=== PATIENT | female | born 1950 | race Caucasian/White ===

== ENCOUNTER 2018-10-07 12:32 | Emergency (ER) | payer MEDICARE, OTHER ==
[~2018-10-07] VITALS: Ht 152.4 cm; Wt 68.5 kg
[~2018-10-07 12:32] MED LIST: AMBIEN 5 MG TABL5 M1 PO; ATORVASTATIN CA40 MG PO; CYCLOBENZAPRINE5 MG PO; LISINOPRIL20 MG PO; MEDROLDOSEPACK PO; NAPROSYN500 MG PO; NORCO 5-325 TA1 EACH PO
[2018-10-07 13:16] LABS: ABSOLUTE BASOPHILS 0.1 thou/uL (0.0-0.2); ABSOLUTE EOSINOPHILS 0.2 thou/uL (0.0-0.7); ABSOLUTE LYMPHOCYTES 2.1 thou/uL (0.8-5.3); ABSOLUTE MONOCYTES 0.5 thou/uL (0.0-1.2); ABSOLUTE NEUTROPHILS 4.8 thou/uL (1.6-8.1); BASOPHILS 0.9 %; EOSINOPHILS 2.7 %; HEMATOCRIT 40.3 % (37.0-47.0); HEMOGLOBIN 13.5 gm/dL (12.0-15.0); LYMPHOCYTES 27.4 %; MCH 31.4 pg (26.0-34.0); MCHC 33.5 g/dL (28.0-37.0); MCV 93.7 fL (80.0-100.0); MONOCYTES 6.6 %; MPV 8.7 fl. (7.2-11.1); NUCLEATED RBCS 0 /100WBC; PLATELET COUNT* 271 thou/uL (150-400); POLYS 62.4 %; RDW-CV 13.6 % (10.5-14.5); WBC 7.8 thou/uL (4.0-11.0)
[2018-10-07] MEDS ORDERED: CRESTOR40 MG PO (13:21)
[2018-10-07] MEDS ORDERED: VITAMIN D34000 UNIT PO (13:22)
[2018-10-07] MEDS ORDERED: FISH OIL 1,001000 M2 PO (13:22)
[2018-10-07] MEDS ORDERED: POTASSIUM20 PO (13:22)
[2018-10-07] MEDS ORDERED: ZANTAC 150MG T150 MG PO (13:22)
[2018-10-07] MEDS ORDERED: ASPIR 8181 MG PO (13:22)
[2018-10-07 13:23] LABS: ANION GAP 7 mmol/L (7-16); BUN 14 mg/dL (7-18); CALCIUM 9.5 mg/dL (8.5-10.1); CHLORIDE 103 mmol/L (98-107); CO2 26 mmol/L (21-32); CREATININE 0.8 mg/dL (0.6-1.3); GLUCOSE 95 mg/dL (70-99); POTASSIUM 3.8 mmol/L (3.5-5.1); SODIUM 136 mmol/L (136-145)
[2018-10-07 13:30] LABS: ALBUMIN 3.8 g/dL (3.4-5.0); ALKALINE PHOSPHATASE 85 U/L (46-116); SGOT 24 U/L (15-37); SGPT 28 U/L (30-65); TOTAL BILIRUBIN 0.4 mg/dL (<0.1-1.0); TOTAL PROTEIN 7.4 g/dL (6.4-8.2); TROPONIN-I LEVEL <0.06 ng/mL (<0.06)
[2018-10-07] MEDS ORDERED: TORADOL 10 MG T10 MG PO (14:38)
[2018-10-07 15:05] VITALS: BP 121/99
--- NOTE | 2018-10-07 17:50 | EKG ---
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: DIA : 1950 Requested By: Nayely Dove Order Number: [id number] Reading MD: Wang Zambrano Measurements Intervals [place] Rate: 64 P: 26 [place]: 173 QRS: -38 QRSD: 92 T: 41 QT: 389 QTc: 402 Interpretive Statements Sinus rhythm Left axis deviation Abnormal R-wave progression, late transition No previous ECG available for comparison Electronically Signed On 10-07-2018 17:50:34 LOGGING SPECIALIST by Wang Zambrano [email or web address] <ELECTRONICALLY SIGNED> By: Wang Zambrano MD, [facility] 10/07/18 1750 1251 1251 Wang Zambrano MD, FAC /EPI
--- NOTE | 2018-10-07 17:50 | EKG ---
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 : 1950 Requested By: Vivian Alegre Order Number: [id number] MD: Wang Zambrano Measurements Intervals [place] Rate: 72 P: 14 CT: 164 QRS: -38 QRSD: 143 T: 39 QT: 427 QTc: 468 Interpretive Statements Sinus rhythm Right bundle branch block Left ventricular hypertrophy Lateral infarct, age indeterminate No previous ECG available for comparison Electronically Signed On 10-07-2018 17:50:29 SPEECH THERAPIST TECHNICIAN by Wang Zambrano [email or web address] <ELECTRONICALLY SIGNED> By: Wang Zambrano MD, [facility] 10/07/18 1750 1241 1241 Wang Zambrano MD, FACC /EPI
== END 2018-10-07 15:06 | disposition home or self-care (01) ==
LOC: M.ERS 12:32
PROVIDERS: Personal Emergency Response Attendant
DX: R09.1 Pleurisy (principal); I10 Essential (primary) hypertension; Z85.3 Personal history of malignant neoplasm of breast; Z90.13 Acquired absence of bilateral breasts and nipples; Z88.8 Allergy status to other drugs, medicaments and biological substances

== ENCOUNTER 2018-10-23 22:14 | Emergency (ER) | payer MEDICARE, OTHER ==
[~2018-10-23] VITALS: Ht 152.4 cm; Wt 66.2 kg
[~2018-10-23 22:14] MED LIST changes: +ASPIR 8181 MG PO; +CRESTOR40 MG PO; +FISH OIL 1,001000 M2 PO; +POTASSIUM20 PO; +TORADOL 10 MG T10 MG PO; +VITAMIN D34000 UNIT PO; +ZANTAC 150MG T150 MG PO
[2018-10-23 22:41] LABS: ABSOLUTE BASOPHILS 0.1 thou/uL (0.0-0.2); ABSOLUTE EOSINOPHILS 0.2 thou/uL (0.0-0.7); ABSOLUTE LYMPHOCYTES 2.6 thou/uL (0.8-5.3); ABSOLUTE MONOCYTES 0.5 thou/uL (0.0-1.2); ABSOLUTE NEUTROPHILS 4.6 thou/uL (1.6-8.1); BASOPHILS 0.7 %; EOSINOPHILS 2.7 %; HEMATOCRIT 36.7 % (37.0-47.0); HEMOGLOBIN 12.4 gm/dL (12.0-15.0); LYMPHOCYTES 32.8 %; MCH 31.1 pg (26.0-34.0); MCHC 33.7 g/dL (28.0-37.0); MCV 92.4 fL (80.0-100.0); MONOCYTES 6.2 %; MPV 8.5 fl. (7.2-11.1); NUCLEATED RBCS 0 /100WBC; PLATELET COUNT* 247 thou/uL (150-400); POLYS 57.6 %; RBC 3.97 mil/uL (4.20-5.00); RDW-CV 13.4 % (10.5-14.5); WBC 8.1 thou/uL (4.0-11.0)
[2018-10-23 22:45] LABS: CALCIUM 9.3 mg/dL (8.5-10.1); CREATININE 0.8 mg/dL (0.6-1.3); POTASSIUM 3.5 mmol/L (3.5-5.1)
[2018-10-23 22:49] LABS: ALBUMIN 3.7 g/dL (3.4-5.0); TOTAL BILIRUBIN 0.3 mg/dL (<0.1-1.0)
[2018-10-24 01:52] VITALS: BP 145/85
== END 2018-10-24 01:52 | disposition home or self-care (01) ==
LOC: M.ERS 22:14
PROVIDERS: Personal Emergency Response Attendant
DX: K59.00 Constipation, unspecified (principal); I10 Essential (primary) hypertension; Z88.6 Allergy status to analgesic agent; Z85.3 Personal history of malignant neoplasm of breast

== ENCOUNTER 2019-05-17 16:23 | Emergency (ER) | payer MEDICARE, OTHER ==
[~2019-05-17] VITALS: Ht 152.4 cm; Wt 66.7 kg
[2019-05-17] MEDS ORDERED: TYLENOL325 MG PO (16:33)
[2019-05-17] MEDS ORDERED: TRAMADOL 50 MG50 MG PO (16:33)
[2019-05-17] MEDS ORDERED: GABAPENTIN 100100 MG PO (16:34)
[2019-05-17] MEDS ORDERED: MEDROLDOSEPACK PO (16:57)
[2019-05-17] MEDS ORDERED: NORCO 5-325 TA1 EAC1 PO (16:57)
[2019-05-17] MEDS ORDERED: NABUMETONE 750750 M1 PO (16:57)
[2019-05-17 17:23] VITALS: BP 148/66
== END 2019-05-17 17:24 | disposition home or self-care (01) ==
LOC: M.ERS 16:23
DX: M54.42 Lumbago with sciatica, left side (principal); G89.29 Other chronic pain; I10 Essential (primary) hypertension; Z85.3 Personal history of malignant neoplasm of breast; Z90.13 Acquired absence of bilateral breasts and nipples

== ENCOUNTER 2019-08-06 13:36 | Emergency (ER) | payer MEDICARE, OTHER ==
[~2019-08-06] VITALS: Ht 152.4 cm; Wt 65.3 kg
[~2019-08-06 13:36] MED LIST changes: +GABAPENTIN 100100 MG PO; +NABUMETONE 750750 M1 PO; +NORCO 5-325 TA1 EAC1 PO; +TRAMADOL 50 MG50 MG PO; +TYLENOL325 MG PO
[2019-08-06 14:08] LABS: HEMATOCRIT 39.6 % (37.0-47.0); HEMOGLOBIN 13.5 gm/dL (12.0-15.0); MCHC 34.1 g/dL (28.0-37.0); MCV 90.9 fL (80.0-100.0); MPV 7.9 fl. (7.2-11.1); RBC 4.36 mil/uL (4.20-5.00); RDW-CV 14.4 % (10.5-14.5)
[2019-08-06 14:14] LABS: ANION GAP 9 mmol/L (7-16); BUN 12 mg/dL (7-18); CALCIUM 9.6 mg/dL (8.5-10.1); CHLORIDE 105 mmol/L (98-107); CO2 24 mmol/L (21-32); CREATININE 0.9 mg/dL (0.6-1.3); GLUCOSE 99 mg/dL (70-99); SODIUM 138 mmol/L (136-145)
[2019-08-06 14:23] LABS: TROPONIN-I LEVEL <0.06 ng/mL (<0.06)
[2019-08-06] MEDS ORDERED: ZPAK PO (15:07)
[2019-08-06] MEDS ORDERED: PREDNISONE50 MG PO (15:07)
[2019-08-06 15:10] VITALS: BP 127/68
--- NOTE | 2019-08-07 10:43 | EKG ---
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 : 1950 Requested By: Robbi Kerr Order Number: [id number] MD: Wang Zambrano Measurements Intervals [place] Rate: 86 P: 22 [place]: 161 QRS: -41 QRSD: 138 T: 75 QT: 385 QTc: 461 Interpretive Statements Sinus rhythm Right bundle branch block LVH with secondary repol abnrm Compared to ECG 10/07/2018 12:51:45 Right bundle-branch block now present Left ventricular hypertrophy now present Early repolarization now present Electronically Signed On 08-07-2019 10:43:10 CDT by Wang Zambrano [email or web address] <ELECTRONICALLY SIGNED> By: Wang Zambrano MD, [facility] 08/07/19 1043 1347 1347 Wang Zambrano MD, [facility] /EPI
== END 2019-08-06 15:10 | disposition home or self-care (01) ==
LOC: M.ERS 13:36
PROVIDERS: Emergency Medicine Emergency Medical Services
DX: J02.9 Acute pharyngitis, unspecified (principal); I10 Essential (primary) hypertension; Z85.3 Personal history of malignant neoplasm of breast

== ENCOUNTER → 2019-09-06 | Outpatient (CLI) | payer MEDICARE, OTHER ==
[~2019-09-06] MED LIST changes: +PREDNISONE50 MG PO; +ZPAK PO
== END ==
LOC: M.CT 11:57
DX: R91.1 Solitary pulmonary nodule (principal)

== ENCOUNTER 2020-02-04 12:19 | Emergency (ER) | payer MEDICARE, OTHER ==
[~2020-02-04] VITALS: Ht 152.4 cm; Wt 65.8 kg
[2020-02-04] MEDS ORDERED: KEFLEX500 M2 PO (12:31)
[2020-02-04 14:08] LABS: ABSOLUTE BASOPHILS 0.1 thou/uL (0.0-0.2); ABSOLUTE EOSINOPHILS 0.2 thou/uL (0.0-0.7); ABSOLUTE LYMPHOCYTES 1.4 thou/uL (0.8-5.3); ABSOLUTE MONOCYTES 0.5 thou/uL (0.0-1.2); ABSOLUTE NEUTROPHILS 6.2 thou/uL (1.6-8.1); BASOPHILS 0.7 %; EOSINOPHILS 2.9 %; HEMATOCRIT 37.6 % (37.0-47.0); HEMOGLOBIN 12.9 gm/dL (12.0-15.0); LYMPHOCYTES 17.1 %; MCH 30.8 pg (26.0-34.0); MCHC 34.4 g/dL (28.0-37.0); MCV 89.6 fL (80.0-100.0); MONOCYTES 6.2 %; MPV 7.7 fl. (7.2-11.1); NUCLEATED RBCS 0 /100WBC; PLATELET COUNT* 271 thou/uL (150-400); POLYS 73.1 %; RBC 4.19 mil/uL (4.20-5.00); WBC 8.4 thou/uL (4.0-11.0)
[2020-02-04 14:13] LABS: CALCIUM 9.9 mg/dL (8.5-10.1); CREATININE 0.8 mg/dL (0.6-1.3); POTASSIUM 3.9 mmol/L (3.5-5.1)
[2020-02-04 14:24] LABS: ALBUMIN 3.7 g/dL (3.4-5.0); TOTAL BILIRUBIN 0.3 mg/dL (<0.1-1.0); TOTAL PROTEIN 7.6 g/dL (6.4-8.2)
[2020-02-04] MEDS ORDERED: MEDROLDOSEPACK PO (14:30)
[2020-02-04] MEDS ORDERED: VENTOLIN HFA 1818 GM INH (14:30)
[2020-02-04] MEDS ORDERED: LEVAQUIN 500 M500 M3 PO (14:30)
[2020-02-04 14:39] VITALS: BP 132/70
== END 2020-02-04 14:40 | disposition home or self-care (01) ==
LOC: M.ERS 12:19
PROVIDERS: Personal Emergency Response Attendant
DX: J40 Bronchitis, not specified as acute or chronic (principal); I10 Essential (primary) hypertension; Z85.3 Personal history of malignant neoplasm of breast; Z90.13 Acquired absence of bilateral breasts and nipples

== ENCOUNTER → 2020-10-17 | Outpatient (CLI) | payer MEDICARE, OTHER ==
[~2020-10-17] MED LIST changes: +KEFLEX500 M2 PO; +LEVAQUIN 500 M500 M3 PO; +VENTOLIN HFA 1818 GM INH
== END ==
LOC: M.ULTRA 10:34
PROVIDERS: ATTEND Family Medicine
DX: R22.1 Localized swelling, mass and lump, neck (principal)

== ENCOUNTER 2021-10-14 06:41 | Emergency (ER) | payer MEDICARE ==
[~2021-10-14] VITALS: Ht 152.4 cm; Wt 62.6 kg
[2021-10-14] MEDS ORDERED: HYDROCODON-ACE1 EAC7 PO (07:37)
[2021-10-14 07:42] VITALS: BP 174/81
== END 2021-10-14 07:43 | disposition home or self-care (01) ==
LOC: M.ERS 06:41
DX: M79.672 Pain in left foot (principal); I10 Essential (primary) hypertension; Z85.3 Personal history of malignant neoplasm of breast; Z98.890 Other specified postprocedural states; Z79.899 Other long term (current) drug therapy